=== PATIENT | female | born 1955 | race Caucasian/White ===

== ENCOUNTER 2020-11-13 15:00 | Day surgery (SDC) | payer MEDICARE, OTHER ==
[~2020-11-13] VITALS: Ht 162.6 cm; Wt 72.1 kg
[~2020-11-13 15:00] MED LIST: ALEN70 PO; ARIP10 PO; ATOR40TA PO; BACL20; BUPRENORPHINE HC8 MG; BUSP15 PO; CARI350 PO; CHOL10002 PO; CHOLESTYRAMI239.4 G1 PO; CLON.5 PO; CLON1 PO; Carisoprodol350 MG PO; Cipro500 MG PO; DESV50 PO; DIPATR PO; DULO30 PO; DULO60 PO; GABA300 PO; HYDACE10B PO; HYDACE5 PO; HYDACE5325 PO; HYDMOR4 PO; KETO10 PO; LAVAP17G PO; LITH300C PO; LORA2 PO; LOVA20 PO; LOVA40 PO; METCAR750 PO; METO25ER PO; METO50ER PO; MIRALAX17 GM PO; MORP15ER PO; Morphine Sulfat15 MG; Ondansetron Odt8 MG MM; Oxycodone HCl20 M1 PO; PANT20 PO; PANT40 PO; PROM25 PO; PROM25S PO; Pyridium200 MG PO; QUET25; QUET25 PO; QUET300 PO; RANI150 PO; Robaxin750 MG PO; TRAZ100 PO; Ultram50 MG PO; VENL25 PO; VENL37.5ER PO; VENL75ER PO
--- NOTE | 2020-11-13 16:01 | NUR ---
11/13/20 1601 Linda Collado CALL LIGHT WITHIN REACH
== END 2020-11-13 17:35 | disposition home or self-care (01) ==
LOC: ORSCSDS 15:00
PROVIDERS: Internal Medicine Gastroenterology
PROC: 0DB68ZX Excision of Stomach, Via Natural or Artificial Opening Endoscopic, Diagnostic (ICD-10-PCS; principal; 2020-11-13 15:15)
DX: R11.2 Nausea with vomiting, unspecified (principal); K21.9 Gastro-esophageal reflux disease without esophagitis; F17.210 Nicotine dependence, cigarettes, uncomplicated; Z79.899 Other long term (current) drug therapy
CPT/HCPCS: 88305; 88342; J2001; J2704; J7120

== ENCOUNTER → 2021-02-28 | Outpatient (CLI) | payer MEDICARE, OTHER ==
[2021-03-05 21:09] LABS: HSV-1 DNA Negative (Negative); HSV-2 DNA Negative (Negative)
== END | disposition home or self-care (01) ==
LOC: LAB SHORT 17:10
PROVIDERS: Physician Assistant Medical
DX: D22.62 Melanocytic nevi of left upper limb, including shoulder (principal); D22.71 Melanocytic nevi of right lower limb, including hip; R21 Rash and other nonspecific skin eruption; L81.4 Other melanin hyperpigmentation; L82.1 Other seborrheic keratosis; L81.8 Other specified disorders of pigmentation
CPT/HCPCS: 87529; 87798

== ENCOUNTER → 2023-08-05 | Outpatient (CLI) | payer MEDICARE, OTHER ==
[2023-08-05 20:30] LABS: Albumin, Blood 3.5 g/dL (3.4-5.0); Albumin/Globulin Ratio 1.1 (0.8-1.8); Bilirubin, Total 0.3 mg/dL (0.1-1.0); Bun/Creatinine Ratio 18.1 (12.0-20.0); Creatinine, Blood 0.83 mg/dL (0.40-1.00); Globulin, Blood 3.3 g/dL (2.2-4.0); Potassium, Blood 4.3 mmol/L (3.5-5.5); Total Protein, Blood 6.8 g/dL (6.4-8.2)
== END | disposition home or self-care (01) ==
LOC: LAB SHORT 18:51 → LAB 18:51
PROVIDERS: Student in an Organized Health Care Education/Training Program
DX: R06.09 Other forms of dyspnea (principal); Z79.899 Other long term (current) drug therapy
CPT/HCPCS: 80053; 83880

== ENCOUNTER → 2024-02-16 | Outpatient (CLI) | payer MEDICARE, OTHER ==
[2024-02-16 19:30] LABS: BASOPHILS ABSOLUTE AUTO 0.08 K/mm3 (0.00-0.23); BASOPHILS PERCENT AUTO 1 % (0-2); EOSINOPHILS ABSOLUTE AUTO 0.21 K/mm3 (0.00-0.68); EOSINOPHILS PERCENT AUTO 3 % (0-6); Hematocrit 34.1 % (33.0-51.0); Hemoglobin 11.3 g/dL (11.5-16.0); IMMATURE GRAN ABSOLUTE AUTO 0.02 K/mm3 (0.00-0.10); IMMATURE GRAN PERCENT AUTO 0 % (0-1); LYMPHOCYTES ABSOLUTE AUTO 2.11 K/mm3 (0.84-5.20); LYMPHOCYTES PERCENT AUTO 35 % (21-46); MONOCYTES ABSOLUTE AUTO 0.46 K/mm3 (0.16-1.47); MONOCYTES PERCENT AUTO 8 % (4-13); Mean Corpuscular HGB Conc 33.1 g/dL (31.5-36.5); Mean Corpuscular Volume 88 fL (80-100); Mean Platelet Volume 11.5 fL (9.1-12.4); NEUTROPHILS ABSOLUTE AUTO 3.24 K/mm3 (1.96-9.15); NEUTROPHILS PERCENT AUTO 53 % (41-73); Platelet Count 296 K/mm3 (150-400); RDW Coefficient Variation 13.7 % (11.7-14.2); RDW Standard Deviation 44.1 fL (35.1-46.3); Red Blood Cell Count 3.89 M/mm3 (3.80-5.20); White Blood Cell Count 6.12 K/mm3 (4.00-11.30)
[2024-02-16 19:57] LABS: Albumin, Blood 3.9 g/dL (3.4-5.0); Albumin/Globulin Ratio 1.1 (0.8-1.8); Bilirubin, Total 0.4 mg/dL (0.1-1.0); Bun/Creatinine Ratio 23.5 (12.0-20.0); Calcium, Blood 8.9 mg/dL (8.5-10.1); Creatinine, Blood 1.02 mg/dL (0.40-1.00); Globulin, Blood 3.6 g/dL (2.2-4.0); Potassium, Blood 3.3 mmol/L (3.5-5.5); Total Protein, Blood 7.5 g/dL (6.4-8.2)
== END | disposition home or self-care (01) ==
LOC: LAB 18:38 → LAB SHORT 18:38
PROVIDERS: Family Medicine
DX: Z51.81 Encounter for therapeutic drug level monitoring (principal); Z79.899 Other long term (current) drug therapy
CPT/HCPCS: 80053; 85025